=== PATIENT | male | born 1995 | race African-American/Black ===

== ENCOUNTER 2017-11-01 10:48 | Emergency (ER) | payer OTHER ==
[2017-11-01 10:51] VITALS: RESP 18
[2017-11-01] MEDS ORDERED: ACETAMINOPHEN TAB 500 MG TAB PO STA (11:02)
--- NOTE | 2017-11-01 11:05 | ED ---
Head Injury HPI - General Chief complaint: Head Injury Stated complaint: head injury Time Seen by Provider: 11/01/17 10:54 Source: patient Mode of arrival: ambulatory Limitations: no limitations - History of Present Illness Initial comments: Is a 22-year-old male with no past medical history who presents emergency department for headache. The patient states that he fell approximately one week ago. He states he was in a chair and fell backwards hitting his head on the ground. He denies any loss of consciousness. He denies any focal weakness , numbness, or tingling. He denies any vision changes. There is no photophobia or phonophobia. The patient states he does occasionally get tension headaches however this feels slightly different. He describes the headache as a cramping sensation in the posterior scalp and along the left side of his head. He denies any difficulty with speech or swallowing. Denies any other acute complaints at this time. - Related Data Home Medications Medication Instructions Recorded Confirmed Albuterol Inhaler [Ventolin Hfa 2 puff INHALATION RT-QID PRN 08/05/13 11/01/17 Inhaler] Hydrochlorothiazide 25 mg PO DAILY 11/01/17 11/01/17 Allergies/Adverse reactions: Allergies Allergy/AdvReac Type Severity Reaction Status Date / Time cephalexin monohydrate Allergy Swelling Verified 11/01/17 10:56 [From Keflex] dextromethorphan Allergy Swelling Verified 11/01/17 10:56 Sulfa (Sulfonamide Allergy Anaphylaxis Verified 11/01/17 10:56 Antibiotics) Review of Systems ROS Statement: Those systems with pertinent positive or pertinent negative responses have been documented in the HPI. ROS Other: All systems not noted in ROS Statement are negative. Past Medical History Past Medical History: Asthma History of Any Multi-Drug Resistant Organisms: None Reported Past Surgical History: Adenoidectomy, Plyoromyotomy, Tonsillectomy Past Anesthesia/Blood Transfusion Reactions: No Reported Reaction Past Psychological History: Anxiety Smoking Status: Never smoker Past Alcohol Use History: None Reported Past Drug Use History: None Reported General Exam - General Exam Comments Initial Comments: Constitutional: Awake alert Appears comfortable Head: Normocephalic atraumatic , no tenderness to palpation along the scalp, no hematoma Eyes: no conjunctival injection No scleral icterus EOMI Neck: No JVD Supple Heart: Regular rate rhythm normal S1-S2 no murmurs Lungs: Clear to auscultation bilaterally No wheezing No rales Abdomen: Soft nondistended nontender Extremities: Non edematous DP pulses intact Radial pulses intact Neuro: A&Ox3, cranial nerve II through XII are grossly intact, 5 out of 5 strength in upper and lower extremities bilaterally, normal finger nose and heel to mcrae testing, normal gait, pupils are 4-5 mm and reactive bilaterally No focal neurologic deficits Psych: Appropriate mood and affect Limitations: no limitations Course Vital Signs 11/01/17 10:49 Temperature 98.4 F Pulse Rate 92 Respiratory 18 Rate Blood Pressure 129/86 O2 Sat by Pulse 98 Oximetry Medical Decision Making - Medical Decision Making Is a 22-year-old male who presents emergency department for headache after a fall one week ago. CT the head was obtained and unremarkable. The patient was given Tylenol with improvement in his symptoms however he did have persistent headache. I did offer him Toradol or other medications however he stated that if everything looked normal he wanted to go home. Told to follow up closely with his primary doctor. Return emergency department. Worsening or changing symptoms. Concussion instructions were described to the patient. All questions were answered. Disposition Clinical Impression: Headache Disposition: HOME SELF-CARE Condition: Stable Instructions: Concussion (ED) Additional Instructions: Please take Motrin and Tylenol for pain. Follow-up with your primary doctor. Return if you have any worsening headache or any numbness, Buena, or weakness in her arms or legs. Or any difficulty with speech or vision. Is patient prescribed a controlled substance at d/c from ED?: No Referrals: Leon Valladares DO [Primary Care Provider] - 1-2 days
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
[2017-11-01 12:34] VITALS: BP 134/79; PULSE 85; TEMP 97.9
== END 2017-11-01 12:34 | disposition home or self-care (01) ==
LOC: EC 10:48
DX: G44.309 Post-traumatic headache, unspecified, not intractable (principal); J45.909 Unspecified asthma, uncomplicated; Z79.899 Other long term (current) drug therapy; Z88.1 Allergy status to other antibiotic agents; Z88.8 Allergy status to other drugs, medicaments and biological substances; Z88.2 Allergy status to sulfonamides; W07.XXXA Fall from chair, initial encounter
CPT/HCPCS: 70450; 99283

== ENCOUNTER 2019-05-05 15:53 | Emergency (ER) | payer BC, OTHER ==
[2019-05-05 15:58] VITALS: RESP 20; TEMP 99
[2019-05-05] MEDS ORDERED: ONDANSETRON 4 MG/2 ML VIAL IVP STA (16:46)
[2019-05-05] MEDS ORDERED: SODIUM CHLORIDE 0.9% 1,000 ML IV STA ×3 (16:46→17:56)
[2019-05-05] MEDS ORDERED: SODIUM CHLORIDE 0.9% 500 ML 500 ML IV STA (16:46)
--- NOTE | 2019-05-05 16:54 | ED ---
Nausea/Vomiting/Diarrhea HPI - General Chief complaint: Nausea/Vomiting/Diarrhea Stated complaint: Vomiting/diarrhea Source: patient, RN notes reviewed, old records reviewed Mode of arrival: ambulatory Limitations: no limitations - History of Present Illness Initial comments: This is a 23-year-old male DF for evaluation patient presents today for evaluation in regards to persistent nausea and vomiting dehydration weakness and abdominal pain. No travel history no significant sick contacts. Patient states that he is unable to keep food down denying drug or alcohol abuse MD complaint: nausea, vomiting, diarrhea -: days(s) Description of Vomiting: watery Description of Diarrhea: water Associated Abdominal Pain: Yes Location: periumbilical Radiation: none Severity: moderate Severity scale (1-10): 5 Quality: cramping Consistency: intermittent Improves with: none Worsens with: none Context: sick contacts Associated Symptoms: myalgias, loss of appetite, nausea/vomiting, weakness - Related Data Home Medications Medication Instructions Recorded Confirmed Albuterol Inhaler [Ventolin Hfa 2 puff INHALATION RT-QID PRN 08/05/13 11/01/17 Inhaler] Hydrochlorothiazide 25 mg PO DAILY 11/01/17 11/01/17 Allergies Allergy/AdvReac Type Severity Reaction Status Date / Time cephalexin monohydrate Allergy Swelling Verified 05/05/19 15:57 [From Keflex] dextromethorphan Allergy Swelling Verified 05/05/19 15:57 Sulfa (Sulfonamide Allergy Anaphylaxis Verified 05/05/19 15:57 Antibiotics) Review of Systems ROS Statement: Those systems with pertinent positive or pertinent negative responses have been documented in the HPI. ROS Other: All systems not noted in ROS Statement are negative. Past Medical History Past Medical History: Asthma History of Any Multi-Drug Resistant Organisms: None Reported Past Surgical History: Adenoidectomy, Plyoromyotomy, Tonsillectomy Past Anesthesia/Blood Transfusion Reactions: No Reported Reaction Past Psychological History: Anxiety, Depression Smoking Status: Never smoker Past Alcohol Use History: Occasional Past Drug Use History: None Reported General Exam Limitations: no limitations General appearance: alert, in no apparent distress Head exam: Present: atraumatic, normocephalic, normal inspection Eye exam: Present: normal appearance, PERRL, EOMI. Absent: scleral icterus, conjunctival injection, periorbital swelling ENT exam: Present: normal exam, mucous membranes dry Neck exam: Present: normal inspection. Absent: tenderness, meningismus, lymphadenopathy Respiratory exam: Present: normal lung sounds bilaterally. Absent: respiratory distress, wheezes, rales, rhonchi, stridor Cardiovascular Exam: Present: normal rhythm, tachycardia, normal heart sounds. Absent: systolic murmur, diastolic murmur, rubs, gallop, clicks GI/Abdominal exam: Present: soft, normal bowel sounds. Absent: distended, tenderness, guarding, rebound, rigid Extremities exam: Present: normal inspection, full ROM, normal capillary refill. Absent: tenderness, pedal edema, joint swelling, calf tenderness Back exam: Present: normal inspection Neurological exam: Present: alert, oriented X3, CN II-XII intact Psychiatric exam: Present: normal affect, normal mood Skin exam: Present: warm, dry, intact, normal color. Absent: rash Course Vital Signs 05/05/19 05/05/19 05/05/19 15:55 15:58 16:58 Temperature 99.0 F Pulse Rate 134 H 99 Respiratory 20 20 20 Rate Blood Pressure 99/60 104/70 O2 Sat by Pulse 99 98 Oximetry 05/05/19 05/05/19 05/05/19 17:58 18:00 19:00 Temperature Pulse Rate 100 100 100 Respiratory 20 20 20 Rate Blood Pressure 137/70 132/75 130/76 O2 Sat by Pulse 98 98 98 Oximetry - Reevaluation(s) Reevaluation #1: 05/05/19 19:27 Medical records reviewed Reevaluation #2: 05/05/19 19:27 Symptoms are significantly improved Reevaluation #3: 05/05/19 19:27 Patient given results, questions answered feels good for discharge home Medical Decision Making - Medical Decision Making 23 male to the ER for evaluation persistent nausea vomiting and diarrhea. Symptoms are improved, patient feels good for discharge home - Lab Data Result diagrams: 05/05/19 17:05 05/05/19 17:05 Lab Results 05/05/19 05/05/19 05/05/19 Range/Units 17:05 17:05 17:05 WBC 12.1 H (3.8-10.6) k/uL RBC 6.25 H (4.30-5.90) m/uL Hgb 15.0 (13.0-17.5) gm/dL Hct 47.3 (39.0-53.0) % MCV 75.7 L (80.0-100.0) fL MCH 24.0 L (25.0-35.0) pg MCHC 31.7 (31.0-37.0) g/dL RDW 14.7 (11.5-15.5) % Plt Count 379 (150-450) k/uL Neutrophils % 89 % Lymphocytes % 5 % Monocytes % 3 % Eosinophils % 1 % Basophils % 0 % Neutrophils # 10.8 H (1.3-7.7) k/uL Lymphocytes # 0.6 L (1.0-4.8) k/uL Monocytes # 0.4 (0-1.0) k/uL Eosinophils # 0.2 (0-0.7) k/uL Basophils # 0.0 (0-0.2) k/uL Microcytosis Slight PT 11.3 (9.0-12.0) sec INR 1.1 (<1.2) APTT 27.8 (22.0-30.0) sec Sodium 138 (137-145) mmol/L Potassium 4.5 (3.5-5.1) mmol/L Chloride 102 (98-107) mmol/L Carbon Dioxide 22 (22-30) mmol/L Anion Gap 14 mmol/L BUN 21 H (9-20) mg/dL Creatinine 0.86 (0.66-1.25) mg/dL Est GFR (CKD-EPI)AfAm >90 (>60 ml/min/1.73 sqM) Est GFR (CKD-EPI)NonAf >90 (>60 ml/min/1.73 sqM) Glucose 121 H (74-99) mg/dL Plasma Lactic Acid Miguel (0.7-2.0) mmol/L Calcium 9.4 (8.4-10.2) mg/dL Phosphorus 2.7 (2.5-4.5) mg/dL Magnesium 1.7 (1.6-2.3) mg/dL Total Bilirubin 0.8 (0.2-1.3) mg/dL AST 36 (17-59) U/L ALT 34 (4-49) U/L Alkaline Phosphatase 74 (38-126) U/L Troponin I (0.000-0.034) ng/mL Total Protein 8.7 H (6.3-8.2) g/dL Albumin 4.7 (3.5-5.0) g/dL Lipase 45 (23-300) U/L Urine Color Urine Appearance (Clear) Urine pH (5.0-8.0) Ur Specific [place] (1.001-1.035) Urine Protein (Negative) Urine Glucose (UA) (Negative) Urine Ketones (Negative) Urine Blood (Negative) Urine Nitrite (Negative) Urine Bilirubin (Negative) Urine Urobilinogen (<2.0) mg/dL Ur Leukocyte Esterase (Negative) Urine RBC (0-5) /hpf Urine WBC (0-5) /hpf Urine Mucus (None) /hpf Influenza Type A RNA (Not Detectd) Influenza Type B (PCR) (Not Detectd) 05/05/19 05/05/19 05/05/19 Range/Units 17:05 17:05 17:05 WBC (3.8-10.6) k/uL RBC (4.30-5.90) m/uL Hgb (13.0-17.5) gm/dL Hct (39.0-53.0) % MCV (80.0-100.0) fL MCH (25.0-35.0) pg MCHC (31.0-37.0) g/dL RDW (11.5-15.5) % Plt Count (150-450) k/uL Neutrophils % % Lymphocytes % % Monocytes % % Eosinophils % % Basophils % % Neutrophils # (1.3-7.7) k/uL Lymphocytes # (1.0-4.8) k/uL Monocytes # (0-1.0) k/uL Eosinophils # (0-0.7) k/uL Basophils # (0-0.2) k/uL Microcytosis PT (9.0-12.0) sec INR (<1.2) APTT (22.0-30.0) sec Sodium (137-145) mmol/L Potassium (3.5-5.1) mmol/L Chloride (98-107) mmol/L Carbon Dioxide (22-30) mmol/L Anion Gap mmol/L BUN (9-20) mg/dL Creatinine (0.66-1.25) mg/dL Est GFR (CKD-EPI)AfAm (>60 ml/min/1.73 sqM) Est GFR (CKD-EPI)NonAf (>60 ml/min/1.73 sqM) Glucose (74-99) mg/dL Plasma Lactic Acid Miguel 2.4 H* (0.7-2.0) mmol/L Calcium (8.4-10.2) mg/dL Phosphorus (2.5-4.5) mg/dL Magnesium (1.6-2.3) mg/dL Total Bilirubin (0.2-1.3) mg/dL AST (17-59) U/L ALT (4-49) U/L Alkaline Phosphatase (38-126) U/L Troponin I <0.012 (0.000-0.034) ng/mL Total Protein (6.3-8.2) g/dL Albumin (3.5-5.0) g/dL Lipase (23-300) U/L Urine Color Urine Appearance (Clear) Urine pH (5.0-8.0) Ur Specific [place] (1.001-1.035) Urine Protein (Negative) Urine Glucose (UA) (Negative) Urine Ketones (Negative) Urine Blood (Negative) Urine Nitrite (Negative) Urine Bilirubin (Negative) Urine Urobilinogen (<2.0) mg/dL Ur Leukocyte Esterase (Negative) Urine RBC (0-5) /hpf Urine WBC (0-5) /hpf Urine Mucus (None) /hpf Influenza Type A RNA Not Detected (Not Detectd) Influenza Type B (PCR) Not Detected (Not Detectd) 05/05/19 Range/Units 17:05 WBC (3.8-10.6) k/uL RBC (4.30-5.90) m/uL Hgb (13.0-17.5) gm/dL Hct (39.0-53.0) % MCV (80.0-100.0) fL MCH (25.0-35.0) pg MCHC (31.0-37.0) g/dL RDW (11.5-15.5) % Plt Count (150-450) k/uL Neutrophils % % Lymphocytes % % Monocytes % % Eosinophils % % Basophils % % Neutrophils # (1.3-7.7) k/uL Lymphocytes # (1.0-4.8) k/uL Monocytes # (0-1.0) k/uL Eosinophils # (0-0.7) k/uL Basophils # (0-0.2) k/uL Microcytosis PT (9.0-12.0) sec INR (<1.2) APTT (22.0-30.0) sec Sodium (137-145) mmol/L Potassium (3.5-5.1) mmol/L Chloride (98-107) mmol/L Carbon Dioxide (22-30) mmol/L Anion Gap mmol/L BUN (9-20) mg/dL Creatinine (0.66-1.25) mg/dL Est GFR (CKD-EPI)AfAm (>60 ml/min/1.73 sqM) Est GFR (CKD-EPI)NonAf (>60 ml/min/1.73 sqM) Glucose (74-99) mg/dL Plasma Lactic Acid Miguel (0.7-2.0) mmol/L Calcium (8.4-10.2) mg/dL Phosphorus (2.5-4.5) mg/dL Magnesium (1.6-2.3) mg/dL Total Bilirubin (0.2-1.3) mg/dL AST (17-59) U/L ALT (4-49) U/L Alkaline Phosphatase (38-126) U/L Troponin I (0.000-0.034) ng/mL Total Protein (6.3-8.2) g/dL Albumin (3.5-5.0) g/dL Lipase (23-300) U/L Urine Color Yellow Urine Appearance Clear (Clear) Urine pH 6.0 (5.0-8.0) Ur Specific [place] 1.036 H (1.001-1.035) Urine Protein 1+ H (Negative) Urine Glucose (UA) Negative (Negative) Urine Ketones Trace H (Negative) Urine Blood Negative (Negative) Urine Nitrite Negative (Negative) Urine Bilirubin Negative (Negative) Urine Urobilinogen <2.0 (<2.0) mg/dL Ur Leukocyte Esterase Negative (Negative) Urine RBC 1 (0-5) /hpf Urine WBC 2 (0-5) /hpf Urine Mucus Many H (None) /hpf Influenza Type A RNA (Not Detectd) Influenza Type B (PCR) (Not Detectd) - Radiology Data Radiology results: report reviewed (CT abdPelvis is negative for acute disease), image reviewed Disposition Clinical Impression: Dehydration, Gastroenteritis Clinical Impression: (Ruled Out): CT Is Negative for Acute DiseaseCT abdPelvis is negative for acute disease Disposition: HOME SELF-CARE Condition: Good Instructions (If sedation given, give patient instructions): Acute Nausea and Vomiting (ED), Acute Diarrhea (ED) Is patient prescribed a controlled substance at d/c from ED?: No Referrals: Leon Valladares DO [Primary Care Provider] - 1-2 days
[2019-05-05 17:18] LABS: Basophils % (A) 0 %; Eosinophils # (A) 0.2 k/uL (0-0.7); Eosinophils % (A) 1 %; HCT 47.3 % (39.0-53.0); Lymphocytes # (A) 0.6 k/uL (1.0-4.8); Lymphocytes % (A) 5 %; MCHC 31.7 g/dL (31.0-37.0); MCV 75.7 fL (80.0-100.0); Mean Platelet Volume 7.2; Microcytosis Slight; Monocytes # (A) 0.4 k/uL (0-1.0); Monocytes % (A) 3 %; Neutrophils # (A) 10.8 k/uL (1.3-7.7); Neutrophils % (A) 89 %; Platelet Count 379 k/uL (150-450); RBC 6.25 m/uL (4.30-5.90); RDW 14.7 % (11.5-15.5); WBC 12.1 k/uL (3.8-10.6)
[2019-05-05 17:31] LABS: INR 1.1 (<1.2); Partial Thromboplastin Time 27.8 sec (22.0-30.0); Prothrombin Time 11.3 sec (9.0-12.0)
[2019-05-05 17:41] LABS: Appearance,Urine Clear (Clear); Bilirubin,Urine Negative (Negative); Blood,Urine Negative (Negative); Color,Urine Yellow; Glucose,Urine (UA) Negative (Negative); Ketones,Urine Trace (Negative); Leukocyte Esterase,Urine Negative (Negative); Mucus,Urine Many /hpf; Nitrite,Urine Negative (Negative); Protein,Urine 1+ (Negative); RBC,Urine 1 /hpf (0-5); Specific Gravity,Urine 1.036 (1.001-1.035); Urobilinogen,Urine <2.0 mg/dL (<2.0); WBC,Urine 2 /hpf (0-5)
[2019-05-05 17:47] LABS: ALT 34 U/L (4-49); AST 36 U/L (17-59); African American GFR (CKD) >90 (>60 ml/min/1.73 sqM); Albumin 4.7 g/dL (3.5-5.0); Alkaline Phosphatase 74 U/L (38-126); Anion Gap 14 mmol/L; Blood Urea Nitrogen 21 mg/dL (9-20); Calcium 9.4 mg/dL (8.4-10.2); Carbon Dioxide 22 mmol/L (22-30); Chloride 102 mmol/L (98-107); Glucose 121 mg/dL (74-99); Magnesium 1.7 mg/dL (1.6-2.3); Non-African American GFR(CKD) >90 (>60 ml/min/1.73 sqM); Phosphorus 2.7 mg/dL (2.5-4.5); Potassium 4.5 mmol/L (3.5-5.1); Sodium 138 mmol/L (137-145); Total Bilirubin 0.8 mg/dL (0.2-1.3); Total Protein 8.7 g/dL (6.3-8.2)
--- NOTE | 2019-05-05 18:40 | CT ---
EXAMINATION TYPE: CT abdomen pelvis w con DATE OF EXAM: 05/05/2019 COMPARISON: HISTORY: Mid Abdominal pain with N/V CT DLP: 2509.2 mGycm Automated exposure control for dose reduction was used. CONTRAST: Performed with IV Contrast, patient injected with 100 mL of Isovue 300. Lung bases are clear. There is no pleural effusion. Liver spleen stomach pancreas gallbladder appear normal. Bile ducts are not dilated. There is high density material in the stomach and in the right co jose that could be Pepto-Bismol. There is no adrenal mass. Kidneys show satisfactory contrast opacific ation. There is no hydronephrosis. Ureters are not dilated. There is no retroperitoneal adenopathy. A ppendix is posterior and appears normal. Bladder distends smoothly. There is no inguinal hernia. Ther e is no free fluid in the pelvis. There is no evidence of a pelvic mass. There is no mesenteric edema. There is no ascites or free air. There is no sign of a bowel obstructio n. Lumbar vertebra have normal alignment. Posterior elements are intact. Bony pelvis appears normal. IMPRESSION: Negative CT scan of the abdomen pelvis. Normal appendix.
[2019-05-05] MEDS ORDERED: ONDANSETRON 4 MG ODT STARTER PACK 2 TAB BTL PO STA (19:30)
[2019-05-05 19:49] VITALS: BP 117/70; PULSE 114
== END 2019-05-05 20:18 | disposition home or self-care (01) ==
LOC: EC 15:53
DX: K52.9 Noninfective gastroenteritis and colitis, unspecified (principal); E86.0 Dehydration; R00.0 Tachycardia, unspecified; J45.909 Unspecified asthma, uncomplicated; Z79.51 Long term (current) use of inhaled steroids; Z88.1 Allergy status to other antibiotic agents; Z88.2 Allergy status to sulfonamides; Z88.8 Allergy status to other drugs, medicaments and biological substances; Z98.890 Other specified postprocedural states
CPT/HCPCS: 99285; 96374; 96361 ×3; 36415; 93005; 80053; 83605; 83690; 83735; 84100; 84484; 85025; 85610; 85730; 81001; 87502; 74177; J2405; S0119; Q9967

== ENCOUNTER → 2019-08-13 | Outpatient (CLI) | payer BC, OTHER ==
[2019-08-13 11:15] LABS: HCT 44.2 % (39.0-53.0); HGB 13.6 gm/dL (13.0-17.5); MCHC 30.9 g/dL (31.0-37.0); MCV 77.7 fL (80.0-100.0); Mean Platelet Volume 7.5; Microcytosis Slight; Platelet Count 395 k/uL (150-450); RBC 5.68 m/uL (4.30-5.90); RDW 15.5 % (11.5-15.5); WBC 7.5 k/uL (3.8-10.6)
[2019-08-13 11:48] LABS: Prothrombin Time 10.4 sec (9.0-12.0)
[2019-08-13 16:47] LABS: Albumin 4.2 g/dL (3.80-4.90); Albumin/Globulin Ratio 1.5 (1.60-3.17); Bilirubin, Conjugated 0.2 mg/dL (0.20-0.40); Bilirubin,Unconjugated 0.2 mg/dL; Globulin 2.8 g/dL (1.6-3.3); Total Bilirubin 0.4 mg/dL (0.2-1.2)
== END | disposition home or self-care (01) ==
LOC: LABWHC1 10:18
PROVIDERS: ATTEND Internal Medicine Gastroenterology
DX: K76.0 Fatty (change of) liver, not elsewhere classified (principal)
CPT/HCPCS: 36415; 80076; 81596; 85027; 85610

== ENCOUNTER 2021-01-05 17:20 | Emergency (ER) | payer BC, OTHER ==
[2021-01-05 17:48] VITALS: BP 147/100; PULSE 72; RESP 16; TEMP 99.4
[2021-01-05] MEDS ORDERED: IBUPROFEN 600 MG TAB PO STA (19:00)
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
== END 2021-01-05 22:30 | disposition home or self-care (01) ==
LOC: EC 17:20
DX: S16.1XXA Strain of muscle, fascia and tendon at neck level, initial encounter (principal); R07.89 Other chest pain; I10 Essential (primary) hypertension; J45.909 Unspecified asthma, uncomplicated; Z88.1 Allergy status to other antibiotic agents; Z88.8 Allergy status to other drugs, medicaments and biological substances; Z79.899 Other long term (current) drug therapy; Z88.2 Allergy status to sulfonamides; V89.2XXA Person injured in unspecified motor-vehicle accident, traffic, initial encounter; Y92.89 Other specified places as the place of occurrence of the external cause
CPT/HCPCS: 70450; 72125; 99284

== ENCOUNTER → 2023-07-05 | Outpatient (CLI) | payer OTHER ==
--- NOTE | 2023-07-06 14:23 | CT ---
EXAMINATION TYPE: CT iac wo con DATE OF EXAM: 07/05/2023 COMPARISON: CT brain 01/05/2021 HISTORY: ringing in ears CT DLP: 142.7 mGycm Automated exposure control for dose reduction was used. Contrast: None Technique: Axial images 1 mm thick sections. Reconstructed images in coronal FINDINGS: Some mild mucosal thickening or retention cysts are within the maxillary sinuses. Remaining paranasal sinuses visualized are clear. Ostiomeatal units are patent. A right oswaldo bullosa is present. Masto id air cells are clear. External auditory canals are clear. Internal auditory canals are without expansion or erosion. Cochle a are normal. Semicircular canals are normal. Minimal soft tissue is within the attic on the right. No contact with the incus and malleus is identi fied. No air-fluid levels evident. Left middle ear appears clear. Incus and malleus have normal orientation. IMPRESSION: 1. THERE MAY BE SOME MINIMAL SOFT TISSUE DENSITY WITHIN THE ATTIC ON THE RIGHT. THIS COULD BE SOME FL UID OR CHOLESTEATOMA. FOLLOW-UP CAN BE PERFORMED.
== END | disposition home or self-care (01) ==
LOC: RADCTMAIN 13:53
PROVIDERS: ATTEND Otolaryngology Facial Plastic Surgery
DX: H92.03 Otalgia, bilateral (principal); H93.13 Tinnitus, bilateral
CPT/HCPCS: 70480

== ENCOUNTER 2023-10-16 23:07 | Emergency (ER) | payer OTHER | END 2023-10-16 23:27 | disposition left against medical advice (07) | LOC: EC 23:07 | DX: Z53.21 Procedure and treatment not carried out due to patient leaving prior to being seen by health care provider (principal) | CPT/HCPCS: 99499 ==